=== PATIENT | female | born 2000 | race Caucasian/White ===

== ENCOUNTER 2023-01-08 18:53 | Emergency (ER) | payer OTHER ==
[2023-01-08] MEDS ORDERED: Bupivacaine PF 0.5% 30 ML VIAL ONE (19:44)
== END 2023-01-08 21:20 | disposition home or self-care (01) ==
LOC: CSHERS 18:53
DX: M54.81 Occipital neuralgia (principal)
CPT/HCPCS: 20552; 70450; S0020